=== PATIENT | female | born 1970 | race Caucasian/White ===

== ENCOUNTER 2017-06-23 12:23 | Emergency (ER) | payer BC ==
[2017-06-23 12:46] VITALS: RESP 16; O2SAT 98
[2017-06-23] MEDS: IBUPROFEN SUSP 100 MG/5 ML UDCUP PO ONE (12:52)
[2017-06-23] MEDS: IBUPROFEN 600 MG TAB PO ONE (13:05)
--- NOTE | 2017-06-23 13:41 | EDPHY ---
H & P Stated Complaint: felt and heard pop in r calf while walking uphill. cramping . Time Seen by Provider: 06/23/17 12:55 HPI/ROS: CHIEF COMPLAINT: Left calf pain History by patient HISTORY OF PRESENT ILLNESS: 46 old woman presents with severe left calf pain which began suddenly while she was walking up a mild incline and she felt a sudden pop and had such severe pain she could no longer weightbear. It is difficult to range her ankle because of the severe pain in her calf. She describes it as feeling like a terrible cramp per tightness or spasm. She injured the same calf 2 weeks ago after stepping heart off a bench feeling a sudden stretching pain. The symptoms lasted about 2 days and had completely resolved prior to today. Patient is on a Mirena IUD. She has no prior history of DVT. She did just drive in [place] after 12 hour straight through car eye from [place]. Her father had a DVT associated with surgery. REVIEW OF SYSTEMS: As in HPI, and all other systems reviewed and are negative Source: Patient, Family - Personal History LMP (Females 10-55): IUD In Place Current Tetanus Diphtheria and Acellular Pertussis (TDAP): Yes - Family History Significant Family History: Other. No: No pertinent family hx - Social History Smoking Status: Never smoked - Physical Exam Exam: General Appearance: Alert and no distress. Eyes: Pupils equal and round no injection. Musculoskeletal: Neck is supple and nontender. Extremities: Left calf positive tenderness of her gastrocnemius muscles, no palpable defects, Ramires test equal bilaterally, DP pulses 2+ and equal bilaterally, distal sensation intact, distal cap refill less than 2 seconds. No bony tenderness, full range of motion of left knee, decreased range of motion of left ankle due to pain in her calf. And severe pain in the calf with passive range of motion of left ankle.. Skin: No rashes or lesions. Constitutional: Initial Vital Signs Temperature (C) 37.3 C 06/23/17 12:43 Heart Rate 70 06/23/17 12:43 Respiratory Rate 16 06/23/17 12:43 Blood Pressure 121/79 H 06/23/17 12:43 O2 Sat (%) 98 06/23/17 12:43 O2 Delivery Mode Room Air Allergies/Adverse Reactions: No Known Allergies Allergy (Unverified 06/23/17 12:46) Home Medications: Medication Instructions Recorded Lidocaine 5% [Lidoderm 5% Patch 1 ea TD DAILY #30 patch 06/23/17 (*)] Medical Decision Making - Diagnostics Imaging Results: Imaging Impressions Extremity Venous Study 06/23/17 13:26 Impression: 1. No deep venous thrombosis. 2. No intramuscular hematoma or fluid collection. Findings discussed with Emergency Department physician, Sultana Fry MD, at 1400 hours 06/23/2017. ED Course/Re-evaluation: 46-year-old woman presents with acute onset severe left calf pain after hearing a pop walking up low incline. Exam shows marked calf tenderness and muscle spasm but neurovascularly intact. Ultrasound was negative for DVT in no evidence of free fluid or muscle tear per the radiologist. Patient has some improvement after oral ibuprofen and ice. We discussed conservative measures at home. I am recommending follow-up with orthopedist for symptoms not improve in the next week. She may weight bear as tolerated. - Data Points Medications Given: Discontinued Medications Ibuprofen (Motrin Oral Solution) 600 mg PO EDNOW ONE Stop: 06/23/17 12:46 Last Admin: 06/23/17 12:52 Dose: Not Given Ibuprofen (Motrin) 600 mg PO EDNOW ONE Stop: 06/23/17 12:53 Last Admin: 06/23/17 13:05 Dose: 600 mg Departure - Departure Disposition: Home, Routine, Self-Care Clinical Impression: Pain of left calf Condition: Good Instructions: Leg Pain (ED) Additional Instructions: You were seen by Dr. Sultana Fry today. There was no evidence of blood clot on your ultrasound today and no evidence of significant muscle tear. You may put as much weight as he can stand on year leg. I recommend ibuprofen and/or Tylenol for pain and continuing to ice the area. I recommend follow up with an orthopedist if your symptoms persist. Return for any worsening or new concerns. Referrals: NONE *PRIMARY CARE P,. [Primary Care Provider] - As per Instructions Prescriptions: Lidocaine 5% [Lidoderm 5% Patch (*)] 1 ea TD DAILY #30 patch
[2017-06-23 14:56] VITALS: BP 120/70; PULSE 68; TEMP 99
== END 2017-06-23 14:53 | disposition home or self-care (01) ==
LOC: CED 12:23
DX: S89.92XA Unspecified injury of left lower leg, initial encounter (principal); X58.XXXA Exposure to other specified factors, initial encounter; Y99.8 Other external cause status; Y93.01 Activity, walking, marching and hiking
CPT/HCPCS: 93971-PO